=== PATIENT | female | born 1975 | race Caucasian/White ===

== ENCOUNTER 2016-12-07 14:38 | Emergency (ER) | payer OTHER ==
[~2016-12-07] VITALS: Ht 157.5 cm; Wt 55.8 kg
[~2016-12-07 14:38] MED LIST: BUTALB-APAP-CA1 EACH PO; CIPRO500 MG PO; CITRATE OF MAG296 ML PO; SUBOXONE 8 MG-1 EAC2 SL; TYLENOL REGULA325 MG PO; ULTRAM50 MG PO; ZOFRAN ODT4 MG PO
[2016-12-07] MEDS ORDERED: FIORICET,ESG1 TABLET PO (17:03)
[2016-12-07 17:07] VITALS: BP 133/94
== END 2016-12-07 17:16 | disposition home or self-care (01) ==
LOC: EME 14:38
DX: R51 Headache (principal); R11.0 Nausea; H53.149 Visual discomfort, unspecified
CPT/HCPCS: 99281; 99284; J0780; J1885; J7030

== ENCOUNTER 2017-02-13 13:00 | Emergency (ER) | payer OTHER ==
[~2017-02-13] VITALS: Ht 157.5 cm; Wt 54.3 kg
[~2017-02-13 13:00] MED LIST changes: +FIORICET,ESG1 TABLET PO
[2017-02-13 13:35] LABS: HEMATOCRIT 41.1 % (36.0-46.0); MCH 30.8 PG (29.0-34.0); MCHC 31.6 G/DL (30.0-36.0); MCV 97.4 FL (83-99); MEAN PLAT.VOLUME 11.5 uM^3 (9.5-12.4); PLATELET COUNT 253 K/uL (156-360); RBC DIS.WIDTH-CV 15.1 % (11.8-14.6); RED BLOOD COUNT 4.22 M/uL (3.80-5.20); WHITE BLOOD COUNT 9.5 K/uL (4.1-10.2)
[2017-02-13 13:46] LABS: CHLORIDE 107 mEq/L (99-109); POTASSIUM 4.8 mEq/L (3.7-5.4); SODIUM 142 mEq/L (136-147)
[2017-02-13 13:48] LABS: GLUCOSE 107 mg/dL (70-99)
[2017-02-13 13:50] LABS: ANION GAP 8 MEQ/L (2-14); TOTAL BILIRUBIN 0.6 mg/dL (0.0-1.0)
[2017-02-13 13:52] LABS: ALKALINE PHOSPHATASE 42 IU/L (3-129); GFR ESTIMATE (CALCULATED) 58 mL/min/
[2017-02-13 13:53] LABS: UREA NITROGEN (BUN) 6 mg/dL (9-23)
[2017-02-13 13:55] LABS: LIPASE 67 U/L (1.0-51.0)
[2017-02-13 14:01] LABS: QUANTITATIVE HCG < 4.0 MIU/ML
[2017-02-13 16:44] LABS: ADD MIUA? YES; BILIRUBIN NEGATIVE; BLOOD NEGATIVE; COLOR STRAW ((YELLOW)); GLUCOSE (STRIP) NEGATIVE; KETONES NEGATIVE; LEUKOCYTES NEGATIVE; NITRITE NEGATIVE; PROTEIN (STRIP) NEGATIVE; SPECIFIC GRAVITY 1.008 (1.000-1.030); UROBILINOGEN 0.2 MG/DL (0.2-1.0)
[2017-02-13] MEDS ORDERED: BACTRIM,SEPT1 TABLET PO (17:12)
[2017-02-13 17:39] LABS: BACTERIA 3+ /HPF; EPITHELIAL CELLS RARE /HPF; MUCUS TRACE /LPF; RED BLOOD CELLS 0-5 /HPF (0-5); UCUL ADDED? NO; WHITE BLOOD CELLS 0-5 /HPF (0-5)
[2017-02-13 17:47] VITALS: BP 129/91
== END 2017-02-13 17:30 | disposition home or self-care (01) ==
LOC: EME 13:00 → EXP 13:00
DX: N39.0 Urinary tract infection, site not specified (principal); Z90.710 Acquired absence of both cervix and uterus
CPT/HCPCS: 80053; 81003; 83690; 84702; 85027; 99281; 99284

== ENCOUNTER 2017-02-19 16:38 | Emergency (ER) | payer OTHER ==
[~2017-02-19] VITALS: Ht 157.5 cm; Wt 53.8 kg
[~2017-02-19 16:38] MED LIST changes: +BACTRIM,SEPT1 TABLET PO
[2017-02-19] MEDS ORDERED: METHADONE10 MG PO (17:21)
[2017-02-19 17:26] LABS: ADD MIUA? YES; BILIRUBIN NEGATIVE; BLOOD NEGATIVE; COLOR YELLOW ((YELLOW)); GLUCOSE (STRIP) NEGATIVE; KETONES NEGATIVE; LEUKOCYTES NEGATIVE; NITRITE NEGATIVE; PROTEIN (STRIP) 30; SPECIFIC GRAVITY 1.024 (1.000-1.030); UROBILINOGEN 0.2 MG/DL (0.2-1.0)
[2017-02-19 17:42] LABS: BACTERIA 3+ /HPF; EPITHELIAL CELLS 3+ /HPF; MUCUS TRACE /LPF; RED BLOOD CELLS 0-5 /HPF (0-5); WHITE BLOOD CELLS 0-5 /HPF (0-5)
[2017-02-19] MEDS ORDERED: MIRALAX255 GM PO (18:07)
[2017-02-19 18:22] VITALS: BP 165/110
[2017-02-20 13:08] LABS: POC NON-PRINT COM 1 ND
== END 2017-02-19 18:23 | disposition home or self-care (01) ==
LOC: EME 16:38
PROVIDERS: Physician Assistant
DX: K62.5 Hemorrhage of anus and rectum (principal); K59.00 Constipation, unspecified; R14.0 Abdominal distension (gaseous)
CPT/HCPCS: 74000; 81003; 82272; 87086; 99281; 99284

== ENCOUNTER 2017-05-24 12:42 | Emergency (ER) | payer OTHER ==
[~2017-05-24] VITALS: Ht 157.5 cm; Wt 54.6 kg
[~2017-05-24 12:42] MED LIST changes: +METHADONE10 MG PO; +MIRALAX255 GM PO
[2017-05-24] MEDS ORDERED: PEN-VEE K,VEET500 MG PO (13:08)
[2017-05-24] MEDS ORDERED: NAPROSYN500 MG PO (13:08)
[2017-05-24 13:32] VITALS: BP 136/93
== END 2017-05-24 13:32 | disposition home or self-care (01) ==
LOC: EME 12:42
DX: K08.89 Other specified disorders of teeth and supporting structures (principal); R51 Headache
CPT/HCPCS: 99281; 99284; J1885

== ENCOUNTER 2017-08-13 15:00 | Emergency (ER) | payer OTHER ==
[~2017-08-13] VITALS: Ht 160 cm; Wt 57.6 kg
[~2017-08-13 15:00] MED LIST changes: +NAPROSYN500 MG PO; +PEN-VEE K,VEET500 MG PO
[2017-08-13 16:04] VITALS: BP 149/85
== END 2017-08-13 16:06 | disposition home or self-care (01) ==
LOC: EME 15:00
DX: R51 Headache (principal); F32.9 Major depressive disorder, single episode, unspecified
CPT/HCPCS: 99281; 99284; J1885

== ENCOUNTER 2017-12-10 00:04 | Emergency (ER) | payer OTHER ==
[~2017-12-10] VITALS: Ht 157.5 cm; Wt 61.4 kg
[2017-12-10 04:03] VITALS: BP 151/87
== END 2017-12-10 04:04 | disposition home or self-care (01) ==
LOC: EME 00:04
DX: R22.2 Localized swelling, mass and lump, trunk (principal); F32.9 Major depressive disorder, single episode, unspecified; Z79.891 Long term (current) use of opiate analgesic; Z90.710 Acquired absence of both cervix and uterus
CPT/HCPCS: 99281; 99284

== ENCOUNTER 2018-01-18 16:13 | Emergency (ER) | payer OTHER ==
[~2018-01-18] VITALS: Ht 157.5 cm; Wt 62.1 kg
[2018-01-18 18:05] LABS: HEMATOCRIT 36.5 % (36.0-46.0); HEMOGLOBIN 12.3 G/DL (11.9-15.5); MCH 32.9 PG (29.0-34.0); MCHC 33.7 G/DL (30.0-36.0); MCV 97.6 FL (83-99); PLATELET COUNT 225 K/uL (156-360); RBC DIS.WIDTH-CV 13.6 % (11.8-14.6); RBC DIS.WIDTH-SD 49.3 % (39-53); RED BLOOD COUNT 3.74 M/uL (3.80-5.20); WHITE BLOOD COUNT 7.5 K/uL (4.1-10.2)
[2018-01-18 18:23] LABS: ALBUMIN 4.2 g/dL (3.2-4.8); CHLORIDE 106 mEq/L (99-109); POTASSIUM 4.1 mEq/L (3.7-5.4); SODIUM 143 mEq/L (136-147)
[2018-01-18 18:26] LABS: GLUCOSE 94 mg/dL (70-99); TOTAL PROTEIN 6.9 g/dL (6.4-8.3)
[2018-01-18 18:28] LABS: TOTAL BILIRUBIN 0.5 mg/dL (0.0-1.0)
[2018-01-18 18:29] LABS: ALKALINE PHOSPHATASE 56 IU/L (3-129); CREATININE 0.8 mg/dL (0.6-1.3); GFR ESTIMATE (CALCULATED) > 59 mL/min/
[2018-01-18 18:30] LABS: UREA NITROGEN (BUN) 11 mg/dL (9-23)
[2018-01-18 18:31] LABS: AST (GOT) 93 IU/L (2-34)
[2018-01-18 18:32] LABS: ALT (GPT) 93 IU/L (3-49)
[2018-01-18 18:39] LABS: QUANTITATIVE HCG < 4.0 MIU/ML
[2018-01-18 21:45] VITALS: BP 131/91
== END 2018-01-18 21:48 | disposition home or self-care (01) ==
LOC: EME 16:13
DX: G43.109 Migraine with aura, not intractable, without status migrainosus (principal); Z90.710 Acquired absence of both cervix and uterus
CPT/HCPCS: 80053; 81003; 84702; 85027; 99281; 99284; J1885

== ENCOUNTER 2018-02-07 09:08 | Emergency (ER) | payer OTHER ==
[~2018-02-07] VITALS: Ht 160 cm; Wt 67.0 kg
[2018-02-07 09:47] LABS: HEMATOCRIT 40.3 % (36.0-46.0); HEMOGLOBIN 13.4 G/DL (11.9-15.5); MCH 32.4 PG (29.0-34.0); MCHC 33.3 G/DL (30.0-36.0); MCV 97.3 FL (83-99); RBC DIS.WIDTH-CV 13.8 % (11.8-14.6); RED BLOOD COUNT 4.14 M/uL (3.80-5.20); WHITE BLOOD COUNT 6.8 K/uL (4.1-10.2)
[2018-02-07 09:55] LABS: APPEARANCE CLEAR ((CLEAR)); BILIRUBIN NEGATIVE; BLOOD NEGATIVE; COLOR YELLOW ((YELLOW)); GLUCOSE (STRIP) NEGATIVE; KETONES NEGATIVE; LEUKOCYTES NEGATIVE; NITRITE NEGATIVE; PROTEIN (STRIP) NEGATIVE; SPECIFIC GRAVITY 1.008 (1.000-1.030); UCUL ADDED? NO; UROBILINOGEN 0.2 MG/DL (0.2-1.0)
[2018-02-07 09:56] LABS: ALBUMIN 4.4 g/dL (3.2-4.8); CHLORIDE 105 mEq/L (99-109); POTASSIUM 4.4 mEq/L (3.7-5.4); SODIUM 143 mEq/L (136-147)
[2018-02-07 09:58] LABS: GLUCOSE 99 mg/dL (70-99)
[2018-02-07 09:59] LABS: TOTAL PROTEIN 7.4 g/dL (6.4-8.3)
[2018-02-07 10:00] LABS: TOTAL BILIRUBIN 0.9 mg/dL (0.0-1.0)
[2018-02-07 10:02] LABS: ALKALINE PHOSPHATASE 63 IU/L (3-129); CREATININE 0.9 mg/dL (0.6-1.3); GFR ESTIMATE (CALCULATED) > 59 mL/min/
[2018-02-07 10:03] LABS: UREA NITROGEN (BUN) 13 mg/dL (9-23)
[2018-02-07 10:04] LABS: AST (GOT) 78 IU/L (2-34)
[2018-02-07 10:05] LABS: ALT (GPT) 91 IU/L (3-49)
[2018-02-07 10:30] LABS: PLAT.SUFFICIENCY ADEQUATE; PLATELET COUNT 263 K/uL (156-360)
[2018-02-07] MEDS ORDERED: PYRIDIUM200 MG PO (11:15)
[2018-02-07 11:22] VITALS: BP 132/93
== END 2018-02-07 11:22 | disposition home or self-care (01) ==
LOC: EME 09:08
DX: R30.0 Dysuria (principal); R53.83 Other fatigue; M54.5 Low back pain; Z90.710 Acquired absence of both cervix and uterus
CPT/HCPCS: 80053; 81003; 85027; 87086; 99281; 99284; J1885

== ENCOUNTER 2018-02-11 11:25 | Emergency (ER) | payer OTHER ==
[~2018-02-11] VITALS: Ht 157.5 cm; Wt 60.1 kg
[~2018-02-11 11:25] MED LIST changes: +PYRIDIUM200 MG PO
[2018-02-11] MEDS ORDERED: TORADOL10 MG PO (13:49)
[2018-02-11 14:39] VITALS: BP 159/103
== END 2018-02-11 14:39 | disposition home or self-care (01) ==
LOC: EME 11:25
DX: S00.03XA Contusion of scalp, initial encounter (principal); S06.0X9A Concussion with loss of consciousness of unspecified duration, initial encounter; Y00.XXXA Assault by blunt object, initial encounter; Y99.0 Civilian activity done for income or pay; F32.9 Major depressive disorder, single episode, unspecified; Z79.891 Long term (current) use of opiate analgesic
CPT/HCPCS: 70450; 99281; 99284; J1885